=== PATIENT | female | born 1975 | race American Indian/Alaskan Native ===

== ENCOUNTER 2021-01-07 02:17 | Emergency (ER) | payer SELFPAY ==
[2021-01-07 04:20] LABS: Basophils % (Auto) 0.5 % (0.0-1.8); Eosinophils # (Auto) 0.7 K/mm3 (0.0-0.4); Eosinophils % (Auto) 13.5 % (0.0-4.3); Hematocrit 23.3 % (30.3-42.9); Lymphocytes # (Auto) 1.2 K/mm3 (1.2-5.4); Lymphocytes % (Auto) 22.9 % (13.4-35.0); Mean Corpuscular HGB Conc 30 % (30-34); Monocytes # (Auto) 0.5 K/mm3 (0.0-0.8); Monocytes % (Auto) 9.7 % (0.0-7.3); Platelet Count 324 K/mm3 (140-440); Red Blood Count 3.95 M/mm3 (3.65-5.03)
[2021-01-07 04:21] LABS: Mean Corpuscular Volume 59 fl (79-97); Red Cell Distribution Width 21.4 % (13.2-15.2)
--- NOTE | 2021-01-09 12:36 | Emergency Department Report ---
ED Psych HPI - General Chief Complaint: Vaginal Bleeding Stated Complaint: POSS PARASITES ON SKIN Time Seen by Provider: 01/09/21 12:26 Source: patient, EMS Mode of arrival: Ambulatory - History of Present Illness Initial Comments: 1220 Discussed case with Charge Nurse Safia. Pt allegedly in waiting room for 58 hours. She has not asked for help during that time. A staff member told Safia she had seen pt there the entire time. Pt told me she got here at 0230 on the 6th and she has been here (as she does the math) 37 hours. She states I put it in my calendar. Pt states she is here for 1. hemorating (vaginal bleeding). She states I had my ovaries removed, I don't have periods); states she has had vaginal bleeding x 3 days 2. I have parasites or insects crawling on my skin. 3. I had some kind of........................ she could not finish sentence denied hearing voices Denies MH history Home meds none NKDA PSH- ovaries removed PMH anemia Homeless NOK dad mother not in [place]- she would not tell me her name She told me to call [phone] and I can leave a message and theyy will get message to her "real support" I called number and its a full voice mailbox Pt states her real support is Vinnie Chisholm. This is not the name on the voice mail box that I called. Pt states she has not eaten or drank "since I got to this place" I've been waiting on my labs Pt is 45 yo but is acting much younger than stated age denies SI/HI Pos thought blocking/ appears to be having auditory hallucinations (but denies) Given prolonged stay in waiting room labs reordered. The pt never once asked why were getting it again. Although prior in the interview she acknowledged it was drawn. RN is going to call Social Service; Psych eval placed Treatments Prior to Arrival: none - Related Data Allergies Allergy/AdvReac Type Severity Reaction Status Date / Time No Known Allergies Allergy Unverified 01/07/21 03:15 ED Review of Systems ROS: Stated complaint: POSS PARASITES ON SKIN Other details as noted in HPI Comment: All other systems reviewed and negative ED Past Medical Hx - Past Medical History Previous Medical History?: Yes Additional medical history: anemia - Surgical History Past Surgical History?: Yes Additional Surgical History: hysterectomy, oophorectomy - Family History Family history: other (dad ; mother not in [place]) - Social History Substance Use Type: None ED Physical Exam - General Limitations: No Limitations General appearance: alert - Head Head exam: Present: normocephalic - Eye Eye exam: Present: normal appearance - ENT ENT exam: Present: mucous membranes moist - Neck Neck exam: Present: normal inspection - Respiratory Respiratory exam: Present: normal lung sounds bilaterally. Absent: respiratory distress - Cardiovascular Cardiovascular Exam: Present: regular rate, normal rhythm. Absent: systolic murmur, diastolic murmur, rubs, gallop - GI/Abdominal GI/Abdominal exam: Present: soft, normal bowel sounds - Extremities Exam Extremities exam: Present: normal inspection - Back Exam Back exam: Present: normal inspection - Neurological Exam Neurological exam: Present: alert, oriented X3 - Psychiatric Psychiatric exam: Present: other (thought blocking; illogical; paranoid behavior ). Absent: normal affect, normal mood, depressed, agitated, anxious, flat affect, manic, homicidal ideation, suicidal ideation - Skin Skin exam: Present: warm, dry, intact, normal color, other (no insects /parasites). Absent: rash ED Course Vital Signs 01/07/21 01/07/21 01/09/21 03:08 08:34 12:40 Temperature 98.7 F 98.5 F 98.7 F Pulse Rate 86 83 95 H Respiratory 16 16 18 Rate Blood Pressure 135/75 Blood Pressure 128/74 121/54 [Right] O2 Sat by Pulse 100 98 97 Oximetry - Reevaluation(s) Reevaluation #1: 01/09/21 found in waiting room by staff - see notes Reevaluation #2: 01/09/21 13:04 labs/CM and social service pending Reevaluation #3: 01/09/21 15:04 psych and social work still pending pt medically cleared to [facility] ED Medical Decision Making - Lab Data Result diagrams: 01/09/21 12:38 01/09/21 12:38 - Medical Decision Making Lab Results 01/07/21 01/07/21 01/07/21 Range/Units 03:35 03:35 03:35 WBC 5.3 (4.5-11.0) K/mm3 RBC 3.95 (3.65-5.03) M/mm3 Hgb 7.0 L (10.1-14.3) gm/dl Hct 23.3 L (30.3-42.9) % MCV 59 L (79-97) fl MCH 18 L (28-32) pg MCHC 30 (30-34) % RDW 21.4 H (13.2-15.2) % Plt Count 324 (140-440) K/mm3 Lymph % (Auto) 22.9 (13.4-35.0) % [place] % (Auto) 9.7 H (0.0-7.3) % Eos % (Auto) 13.5 H (0.0-4.3) % Baso % (Auto) 0.5 (0.0-1.8) % Lymph # (Auto) 1.2 (1.2-5.4) K/mm3 [place] # (Auto) 0.5 (0.0-0.8) K/mm3 Eos # (Auto) 0.7 H (0.0-0.4) K/mm3 Baso # (Auto) 0.0 (0.0-0.1) K/mm3 Seg Neutrophils % 53.4 (40.0-70.0) % Seg Neutrophils # 2.8 (1.8-7.7) K/mm3 Sodium (137-145) mmol/L Potassium (3.6-5.0) mmol/L Chloride (98-107) mmol/L Carbon Dioxide (22-30) mmol/L Anion Gap mmol/L BUN (7-17) mg/dL Creatinine (0.6-1.2) mg/dL Estimated GFR ml/min BUN/Creatinine Ratio % Glucose (65-100) mg/dL Calcium (8.4-10.2) mg/dL Total Bilirubin (0.1-1.2) mg/dL AST (5-40) units/L ALT (7-56) units/L Alkaline Phosphatase (35-129) units/L Total Protein (6.3-8.2) g/dL Albumin (3.9-5) g/dL Albumin/Globulin Ratio % TSH (0.270-4.200) mlU/mL HCG, Qual Negative (Negative) HCG, Quant < 2 (0-4) mIU/mL Salicylates (2.8-20.0) mg/dL Acetaminophen (10.0-30.0) ug/mL Plasma/Serum Alcohol (0-0.07) % Blood Type 01/07/21 01/09/21 01/09/21 Range/Units 03:35 12:38 12:38 WBC (4.5-11.0) K/mm3 RBC (3.65-5.03) M/mm3 Hgb (10.1-14.3) gm/dl Hct (30.3-42.9) % MCV (79-97) fl MCH (28-32) pg MCHC (30-34) % RDW (13.2-15.2) % Plt Count (140-440) K/mm3 Lymph % (Auto) (13.4-35.0) % [place] % (Auto) (0.0-7.3) % Eos % (Auto) (0.0-4.3) % Baso % (Auto) (0.0-1.8) % Lymph # (Auto) (1.2-5.4) K/mm3 [place] # (Auto) (0.0-0.8) K/mm3 Eos # (Auto) (0.0-0.4) K/mm3 Baso # (Auto) (0.0-0.1) K/mm3 Seg Neutrophils % (40.0-70.0) % Seg Neutrophils # (1.8-7.7) K/mm3 Sodium 138 (137-145) mmol/L Potassium 3.3 L (3.6-5.0) mmol/L Chloride 103.9 (98-107) mmol/L Carbon Dioxide 23 (22-30) mmol/L Anion Gap 14 mmol/L BUN 12 (7-17) mg/dL Creatinine 0.6 (0.6-1.2) mg/dL Estimated GFR > 60 ml/min BUN/Creatinine Ratio 20 % Glucose 107 H (65-100) mg/dL Calcium 8.5 (8.4-10.2) mg/dL Total Bilirubin 0.20 (0.1-1.2) mg/dL AST 18 (5-40) units/L ALT 8 (7-56) units/L Alkaline Phosphatase 71 (35-129) units/L Total Protein 9.0 H (6.3-8.2) g/dL Albumin 3.4 L (3.9-5) g/dL Albumin/Globulin Ratio 0.6 % TSH 1.960 (0.270-4.200) mlU/mL HCG, Qual (Negative) HCG, Quant (0-4) mIU/mL Salicylates (2.8-20.0) mg/dL Acetaminophen (10.0-30.0) ug/mL Plasma/Serum Alcohol (0-0.07) % Blood Type O NEGATIVE 01/09/21 01/09/21 01/09/21 Range/Units 12:38 12:38 12:38 WBC (4.5-11.0) K/mm3 RBC (3.65-5.03) M/mm3 Hgb (10.1-14.3) gm/dl Hct (30.3-42.9) % MCV (79-97) fl MCH (28-32) pg MCHC (30-34) % RDW (13.2-15.2) % Plt Count (140-440) K/mm3 Lymph % (Auto) (13.4-35.0) % [place] % (Auto) (0.0-7.3) % Eos % (Auto) (0.0-4.3) % Baso % (Auto) (0.0-1.8) % Lymph # (Auto) (1.2-5.4) K/mm3 [place] # (Auto) (0.0-0.8) K/mm3 Eos # (Auto) (0.0-0.4) K/mm3 Baso # (Auto) (0.0-0.1) K/mm3 Seg Neutrophils % (40.0-70.0) % Seg Neutrophils # (1.8-7.7) K/mm3 Sodium (137-145) mmol/L Potassium (3.6-5.0) mmol/L Chloride (98-107) mmol/L Carbon Dioxide (22-30) mmol/L Anion Gap mmol/L BUN (7-17) mg/dL Creatinine (0.6-1.2) mg/dL Estimated GFR ml/min BUN/Creatinine Ratio % Glucose (65-100) mg/dL Calcium (8.4-10.2) mg/dL Total Bilirubin (0.1-1.2) mg/dL AST (5-40) units/L ALT (7-56) units/L Alkaline Phosphatase (35-129) units/L Total Protein (6.3-8.2) g/dL Albumin (3.9-5) g/dL Albumin/Globulin Ratio % TSH (0.270-4.200) mlU/mL HCG, Qual (Negative) HCG, Quant (0-4) mIU/mL Salicylates < 0.3 L (2.8-20.0) mg/dL Acetaminophen 5.0 L (10.0-30.0) ug/mL Plasma/Serum Alcohol < 0.01 (0-0.07) % Blood Type Vital Signs 01/07/21 01/07/21 01/09/21 03:08 08:34 12:40 Temperature 98.7 F 98.5 F 98.7 F Pulse Rate 86 83 95 H Respiratory 16 16 18 Rate Blood Pressure 135/75 Blood Pressure 128/74 121/54 [Right] O2 Sat by Pulse 100 98 [address] Palomino a/c anemia no orthostasis labs noted ua noted preg neg medically cleared for psych evaluation. PLAN E SOCIAL SERVICE CONSULT Dispo per E reqs - Differential Diagnosis a/c anemia; ro preg; psychosis Critical care attestation.: If time is entered above; I have spent that time in minutes in the direct care of this critically ill patient, excluding procedure time. ED Disposition Clinical Impression: Psychosis Disposition: DC/TX-65 PSY HOSP/PSY UNIT Is pt being admited?: No Does the pt Need Aspirin: No Condition: Undetermined Referrals: PRIMARY CARE, [Primary Care Provider] - 3-5 Days
[2021-01-09] MEDS ORDERED: SODIUM CHLORIDE 0.9% 1000 ML 1,000 ML IV ONE (12:54)
[2021-01-09 13:32] LABS: Alanine Aminotransferase 8 units/L (7-56); Albumin 3.4 g/dL (3.9-5); Blood Urea Nitrogen 12 mg/dL (7-17); Calcium 8.5 mg/dL (8.4-10.2); Hemolysis Index 0
[2021-01-09 14:11] LABS: BUN/Creatinine Ratio 20
[2021-01-09] MEDS ORDERED: POTASSIUM CHLORIDE ER 20 MEQ TAB PO ONE (14:37)
[2021-01-09 15:11] LABS: Mean Corpuscular HGB Conc 30 % (30-34); Platelet Count 318 K/mm3 (140-440); Red Blood Count 3.95 M/mm3 (3.65-5.03)
[2021-01-09 15:25] LABS: Mean Corpuscular Volume 58 fl (79-97); Red Cell Distribution Width 21.3 % (13.2-15.2)
[2021-01-09] MEDS ORDERED: ZIPRASIDONE MESYLATE 20 MG VIAL IM ONE (15:25)
--- NOTE | 2021-01-09 15:29 | Emergency Department Report ---
ED Psych HPI - General Chief Complaint: Vaginal Bleeding Stated Complaint: POSS PARASITES ON SKIN Time Seen by Provider: 01/09/21 12:26 Source: patient, EMS Mode of arrival: Ambulatory - History of Present Illness Initial Comments: Patient is 45 years old female with unknown past medical history. Patient presented to the ER initially complaining of vaginal bleeding for a long period of time. Patient stated that she had history of anemia. Upon evaluation patient is very aggressive and very loud with pressured speech and flight of ideas. Patient stating that she see insects and worms coming out of her skin. When asked if she has any history of psychiatric problem before she said that she used to have schizophrenia and bipolar but her debt counselor prove that she does not have it anymore. Patient became very agitated and loud, patient is in acute psychosis and patient have to be restrained with Geodon. Complaint: altered mental status -: unknown Associated Psychiatric Symptoms: delusions Treatments Prior to Arrival: none - Related Data Allergies Allergy/AdvReac Type Severity Reaction Status Date / Time No Known Allergies Allergy Unverified 01/07/21 03:15 ED Review of Systems ROS: Stated complaint: POSS PARASITES ON SKIN Other details as noted in HPI Comment: Unobtainable due to pts medical conditions ED Past Medical Hx - Past Medical History Previous Medical History?: Yes Additional medical history: anemia - Surgical History Past Surgical History?: Yes Additional Surgical History: hysterectomy, oophorectomy - Social History Substance Use Type: None ED Physical Exam - General Limitations: No Limitations General appearance: alert, anxious, other (agitated) - Head Head exam: Present: atraumatic, normocephalic, normal inspection - Eye Eye exam: Present: normal appearance - ENT ENT exam: Present: normal exam, normal orophraynx, mucous membranes moist - Neck Neck exam: Present: normal inspection, full ROM. Absent: tenderness, meningismus - Respiratory Respiratory exam: Present: normal lung sounds bilaterally - Cardiovascular Cardiovascular Exam: Present: regular rate, normal rhythm, normal heart sounds - GI/Abdominal GI/Abdominal exam: Present: soft, normal bowel sounds. Absent: distended, tenderness, guarding, rebound, rigid, organomegaly, mass, bruit, pulsatile mass, hernia - Extremities Exam Extremities exam: Present: normal inspection, full ROM, normal capillary refill. Absent: tenderness - Back Exam Back exam: Present: normal inspection, full ROM. Absent: tenderness, CVA tenderness (L) - Neurological Exam Neurological exam: Present: alert, oriented X3 - Psychiatric Psychiatric exam: Present: agitated, manic - Skin Skin exam: Present: warm, intact, normal color ED Course Vital Signs 01/07/21 01/07/21 01/09/21 03:08 08:34 12:40 Temperature 98.7 F 98.5 F 98.7 F Pulse Rate 86 83 95 H Respiratory 16 16 18 Rate Blood Pressure 135/75 Blood Pressure 128/74 121/54 [Right] O2 Sat by Pulse 100 98 97 Oximetry 01/09/21 01/10/21 01/10/21 19:53 04:15 08:00 Temperature 97.6 F 97.1 F L 98.0 F Pulse Rate 92 H 90 89 Respiratory 18 18 18 Rate Blood Pressure Blood Pressure 127/75 122/76 108/72 [Right] O2 Sat by Pulse 100 100 100 Oximetry 01/10/21 01/10/21 01/10/21 09:17 20:00 21:14 Temperature 98.8 F Pulse Rate 89 Respiratory 18 Rate Blood Pressure Blood Pressure 143/84 [Right] O2 Sat by Pulse 100 96 96 Oximetry 01/11/21 01/11/21 10:00 14:36 Temperature 98.5 F Pulse Rate 94 H Respiratory 20 Rate Blood Pressure Blood Pressure 121/71 [Right] O2 Sat by Pulse 100 100 Oximetry ED Medical Decision Making - Lab Data Result diagrams: 01/09/21 12:38 01/09/21 12:38 Critical care attestation.: If time is entered above; I have spent that time in minutes in the direct care of this critically ill patient, excluding procedure time. ED Disposition Clinical Impression: Psychosis Disposition: DC/TX-65 PSY HOSP/PSY UNIT Is pt being admited?: No Condition: Undetermined Additional Instructions: HOMELESS RESOURCES: [facility] NEED HELP? If you are in need of help or know someone who does, please contact us at [email or web address] , or come to our offices at [address] [place] [address], Wednesday-Wednesday beginning at 8AM. [place] Refuge: [facility], [facility] Address: [facility] [address] [place] [id number] How do I join the [facility] housing program? Our housing programs are offered based on availability. If you are looking to participate in our housing program, simply call [phone] to find out if we have available space. Since we do receive many calls, please allow up to 48 hours for one of our housing specialists to return your call. If we do not have vacancies, we suggest callingthe [facility] hotline at [facility] for additional omar sing options. [facility] Admission from 8am to 10am Daily No intake until 06/03/20 Address: [address] [place] [id number] [facility] Ad[facility] Address: [address], [place] [id number] Professional and Agency Contacts To help Resolve Crises (28/12) [place] Crisis Line: Suicide Prevention Line: Crisis Text Line: Text START to 732049 Emergency: 911 Outpatient COMMUNITY Behavioral Health Resources: DUANE: [facility] [address], [place] [address] [facility] [address] [place] [address] Wednesday thru Wednesday - 8am - 5pm Call to schedule an assessment for mental health and substance abuse pr [email or web address] [facility] Address: [address] [place] [address] Wednesday thru Wednesday- 7am-2pm [facility] Address: [address] [place] [address] Wednesday thru Wednesday: 8:30AM-5PM Referrals: PRIMARY CAREMD [Primary Care Provider] - 3-5 Days
[2021-01-09 16:57] LABS: Anisocytosis 1+; Hypochromasia 2+; Total Cells Counted 100
[2021-01-10] MEDS ORDERED: ZIPRASIDONE MESYLATE 20 MG VIAL IM ONE (09:08)
--- NOTE | 2021-01-10 11:27 | Consultation ---
History of Present Illness - Reason for Consult Consult date: 01/10/21 Reason for consult: mental health evaluation - History of Present Psychiatric Illness ED Note: Patient is 45 years old female with unknown past medical history. Patient presented to the ER initially complaining of vaginal bleeding for a long period of time. Patient stated that she had history of anemia. Upon evaluation patient is very aggressive and very loud with pressured speech and flight of ideas. Patient stating that she see insects and worms coming out of her skin. When asked if she has any history of psychiatric problem before she said that s he used to have schizophrenia and bipolar but her contracts representative prove that she does not have it anymore. Patient became very agitated and loud, patient is in acute psychosis and patient have to be restrained with Geodon. The patient Jo Miller is a 45 year old female with unknown psychiatric diagnosis. The patient was seen this morning disorganized, being loud and confrontational. The patient was restrained with Geodon. Unable to assess at this time. PAST PSYCHIATRIC HISTORY: Unable to assess PAST MEDICAL HISTORY:unknown Family Psychiatric History: None reported or documented SOCIAL HISTORY: Unable to assess REVIEW OF SYSTEMS: Unable to assess MENTAL STATUS EXAMINATION: Unable to assess Diagnoses: Psychosis, unspecified- F29 Current Visit: Yes Status: Acute RECOMMENDATIONS Continue 1013 Risks, benefits and alternatives of medications discussed with the patient, questions answered and consent obtained from patient. PSYCHOTHERAPY: Supportive psychotherapy provided MEDICAL: Per primary team DELIRIUM PRECAUTIONS: Please re-orient patient frequently, keep lights on during the day, and minimize benzodiazepines and opiates as these medications could worsen patient's confusion. SPACE BUYER: Per medical team DISPOSITION: Recommend acute inpatient psychiatric hospitalization at this time FOLLOW-UP: Will follow. Thank you for the consult. Please contact with any questions and/or concerns. Medications and Allergies Medications and Allergies Allergies Allergy/AdvReac Type Severity Reaction Status Date / Time No Known Allergies Allergy Unverified 01/07/21 03:15 Mental Status Exam - Vital signs Last Vital Signs Temp 98.0 F 01/10/21 08:00 Pulse 89 01/10/21 08:00 Resp 18 01/10/21 08:00 BP 108/72 01/10/21 08:00 Pulse Ox 100 01/10/21 09:17 Results Result Diagrams: 01/09/21 12:38 01/09/21 12:38 Abnormal lab results 01/09/21 01/09/2101/09/21 Range/Units 12:38 12:38 12:38 WBC 4.2 L (4.5-11.0) K/mm3 Hgb 7.0 L (10.1-14.3) gm/dl Hct 23.0 L (30.3-42.9) % MCV 58 L (79-97) fl MCH 18 L (28-32) pg RDW 21.3 H (13.2-15.2) % Monocytes % (Manual) 10.0 H (0.0-7.3) % Eosinophils % (Manual) 18.0 H (0.0-4.3) % Basophils % (Manual) 2.0 H (0.0-1.8) % Lymphocytes # (Manual) 0.9 L (1.2-5.4) K/mm3 Eosinophils # (Manual) 0.8 H (0.0-0.4) K/mm3 Potassium 3.3 L (3.6-5.0) mmol/L Glucose 107 H (65-100) mg/dL Total Protein 9.0 H (6.3-8.2) g/dL Albumin 3.4 L (3.9-5) g/dL Salicylates < 0.3 L (2.8-20.0) mg/dL Acetaminophen (10.0-30.0) ug/mL 01/09/21 Range/Units 12:38 WBC (4.5-11.0) K/mm3 Hgb (10.1-14.3) gm/dl Hct (30.3-42.9) % MCV (79-97) fl MCH (28-32) pg RDW (13.2-15.2) % Monocytes % (Manual) (0.0-7.3) % Eosinophils % (Manual) (0.0-4.3) % Basophils % (Manual) (0.0-1.8) % Lymphocytes # (Manual) (1.2-5.4) K/mm3 Eosinophils # (Manual) (0.0-0.4) K/mm3 Potassium (3.6-5.0) mmol/L Glucose (65-100) mg/dL Total Protein (6.3-8.2) g/dL Albumin (3.9-5) g/dL Salicylates (2.8-20.0) mg/dL Acetaminophen 5.0 L (10.0-30.0) ug/mL All other labs normal.
--- NOTE | 2021-01-10 11:41 | Emergency Department Report ---
Blank Doc - Documentation Documentation: The patient presents to the emergency department for psychosis Patient is awaiting 1013 application of [facility] Patient has been evaluated by mental health Patient is awaiting placement Patient received Geodon for psychosis and agitation with good results
[2021-01-10] MEDS ORDERED: ZIPRASIDONE MESYLATE 20 MG VIAL IM PRN (12:00)
[2021-01-11 09:28] LABS: Amphetamine Screen,Urine Negative; Benzodiazepines Screen,Urine Negative; Cocaine Screen,Urine Negative; Methadone Screen,Urine Negative; Opiate Screen,Urine Negative
[2021-01-11 09:51] LABS: Bacteria,Urine 4+ /HPF (Negative); Bilirubin,Urine NEG (Negative); Blood,Urine MOD (Negative); Color,Urine Amber (Yellow); Mucus,Urine 3+ /HPF; Trichomonas,Urine FEW /HPF
[2021-01-11 09:52] LABS: Cannabinoid Screen,Urine PRESUMPTIVE POSITIVE
[2021-01-11 09:56] LABS: WBC,Urine > 182.0 /HPF (0.0-6.0)
--- NOTE | 2021-01-11 11:18 | Event Note ---
Date: 01/11/21 S: Patient refusing medications and vital signs. Otherwise no other events were reported overnight O: Vital Signs - 24 hr 01/10/21 01/10/21 01/11/21 20:00 21:14 10:00 Temperature 98.8 F Pulse Rate 89 Respiratory 18 Rate Blood Pressure 143/84 [Right] O2 Sat by Pulse 96 96 100 Oximetry A: Psychosis P: Awaiting psychiatric placement
--- NOTE | 2021-01-11 12:10 | Progress Note ---
Subjective - Reason for Consult Consult date: 01/11/21 Reason for consult: mental health evaluation - Chief Complaint Chief complaint: The patient was seen in the room, she reports doing well. She denies any current suicidal/homicidal ideation and denies hallucinations. The patient states she has been homeless for the past 7 months. REVIEW OF SYSTEMS Constitutional: Negative for weight loss ENT: Negative for stridor Respiratory: Negative for cough or hemoptysis All other systems reviewed and are negative MENTAL STATUS EXAMINATION General Appearance and Behavior: Age appropriate, good hygiene, wearing appropriate clothes, cooperative, cooperative Cooperation: Participating/engaged Psychomotor Behavior: normal Mood: angry Affect and affective range: congruent with stated mood Thought Process: not SI Thought Content: obsession Speech: Normal volume, Regular rate and rhythm Suicidal Ideation: denies Homicidal Ideation: Denies Hallucinations: Denies Delusions: None elicited Impulse Control: impaired Insight and Judgment: limited insight and judgment, Memory: normal Attention: Normal Orientation: Alert, oriented Assessment and Plan (1) schizophrenia (2) Current Visit: Yes Status: Acute Treatment Plan DC 1013 Sitter: Per primary Medical: Per primary Disposition: Do not recommend acute psychiatric inpatient treatment Will follow. Thanks Case staffed with Dr. Calixto Mental Status Exam - Vital signs Last Vital Signs Temp 98.8 F 01/10/21 21:14 Pulse 89 01/10/21 21:14 Resp 18 01/10/21 21:14 BP 143/84 01/10/21 21:14 Pulse Ox 100 01/11/21 10:00
[2021-01-11] MEDS ORDERED: WATER FOR INJ Sterile (PF) 10 ML ONE (12:38)
[2021-01-11 14:36] VITALS: BP 121/71
== END 2021-01-11 16:44 ==
LOC: ED 02:17
DX: F23 Brief psychotic disorder (principal); N93.9 Abnormal uterine and vaginal bleeding, unspecified; Z03.818 Encounter for observation for suspected exposure to other biological agents ruled out
CPT/HCPCS: 36415; 80053; 80307; 81001; 84443; 84702; 84703; 85007; 85025; 86850; 86900; 86901; 96360; 96361; 96372; 99284; J3486; J7030; U0003; 80320; G0480

== ENCOUNTER 2021-01-11 18:53 | Emergency (ER) | payer SELFPAY ==
--- NOTE | 2021-01-11 23:50 | Emergency Department Report ---
ED General Adult HPI - General Chief complaint: Medical Clearance Stated complaint: PARASITES Source: patient Mode of arrival: Ambulatory Limitations: No Limitations - History of Present Illness Initial comments: Patient is a 45-year-old -[place] female with a history of chronic paranoid schizophrenia who presents to the ED with complaint of persistent low blood pressure for the last 12 hours and also states "parasites are emerging from my skin every day and I want sodium chloride to treat them with." Patient states that she did not check her blood pressure but felt that her blood pressure was low because of "parasites in my skin". Patient denies visual or auditory hallucinations, suicidal or homicidal ideations, chest pain, shortness of breath, fever, chills, headache, dizziness, syncope, loss of consciousness, cough, dysuria, urinary frequency and urgency. MD Complaint: Low blood pressure; parasite emerging from skin -: Gradual, month(s) (3) Radiation: non-radiation Severity scale (0 -10): 0 Consistency: intermittent Improves with: none Worsens with: none Associated Symptoms: denies other symptoms. denies: confusion, chest pain, cough, diaphoresis, fever/chills, headaches, nausea/vomiting, rash, seizure, shortness of breath, syncope, weakness Treatments Prior to Arrival: none - Related Data Allergies Allergy/AdvReac Type Severity Reaction Status Date / Time No Known Allergies Allergy Unverified 01/07/21 03:15 ED Review of Systems ROS: Stated complaint: PARASITES Other details as noted in HPI Constitutional: other (States that has low blood pressure). denies: chills, fever Eyes: denies: eye pain, eye discharge, vision change ENT: denies: ear pain, throat pain Respiratory: denies: cough, shortness of breath, wheezing Cardiovascular: denies: chest pain, palpitations Endocrine: no symptoms reported Gastrointestinal: denies: abdominal pain, nausea, diarrhea Genitourinary: denies: urgency, dysuria, discharge Musculoskeletal: denies: back pain, joint swelling, arthralgia Skin: denies: rash, lesions Neurological: denies: headache, weakness, paresthesias Psychiatric: anxiety, other (States that parasites emerging from her skin). denies: depression, auditory hallucinations, homicidal thoughts, suicidal thoughts Hematological/Lymphatic: denies: easy bleeding, easy bruising ED Past Medical Hx - Past Medical History Previous Medical History?: Yes Hx Psychiatric Treatment: Yes (Paranoid schizophrenia) Additional medical history: anemia - Surgical History Past Surgical History?: Yes Additional Surgical History: hysterectomy, oophorectomy - Social History Smoking Status: Never Smoker Substance Use Type: None ED Physical Exam - General Limitations: No Limitations General appearance: alert, in no apparent distress - Head Head exam: Present: atraumatic, normocephalic, normal inspection - Eye Eye exam: Present: normal appearance, PERRL, EOMI Pupils: Present: normal accommodation - ENT ENT exam: Present: normal exam, normal orophraynx, mucous membranes moist, TM's normal bilaterally, normal external ear exam - Neck Neck exam: Present: normal inspection, full ROM - Respiratory Respiratory exam: Present: normal lung sounds bilaterally. Absent: respiratory distress, wheezes, rales, rhonchi, stridor, chest wall tenderness, accessory muscle use, decreased breath sounds, prolonged expiratory - Cardiovascular Cardiovascular Exam: Present: regular rate, normal rhythm, normal heart sounds. Absent: systolic murmur, diastolic murmur, rubs, gallop - GI/Abdominal GI/Abdominal exam: Present: soft, normal bowel sounds. Absent: tenderness, guarding, rebound, hyperactive bowel sounds, hypoactive bowel sounds, organomegaly - Extremities Exam Extremities exam: Present: normal inspection, full ROM, normal capillary refill - Back Exam Back exam: Present: normal inspection, full ROM. Absent: tenderness, CVA tenderness (R), CVA tenderness (L), muscle spasm, paraspinal tenderness, vertebral tenderness - Neurological Exam Neurological exam: Present: alert, oriented X3, CN II-XII intact, normal gait, reflexes normal - Psychiatric Psychiatric exam: Present: normal mood, anxious, flat affect. Absent: homicidal ideation, suicidal ideation - Skin Skin exam: Present: warm, dry, intact, normal color. Absent: rash ED Course Vital Signs 01/11/21 20:37 Temperature 99.0 F Pulse Rate 89 Respiratory 18 Rate Blood Pressure 142/88 O2 Sat by Pulse 100 Oximetry ED Medical Decision Making - Medical Decision Making This is a 45-year-old -[place] female with a history of chronic paranoid schizophrenia who presents to the ED with complaint of persistent low blood pressure for the last 12 hours and also states "parasites are emerging from my skin every day and I want sodium chloride to treat them with." Patient states that she did not check her blood pressure but felt that her blood pressure was low because of "parasites in my skin". In the ED, patient is alert and oriented x3 and is not in any distress with normal vital signs. Patient insisted on being treated in the ED with IV normal saline to treat her perceived "parasites from her skin" but physical exam is unremarkable with no obvious parasitic infestations on her skin. Patient is not homicidal or suicidal at this time, and is hemodynamically stable, answering questions appropriately. Patient was advised to take her regular mental health medications and was therefore discharged from the ED and advised to follow-up with her psychiatrist or mental health counselor in 2 to 3 days for reevaluation. - Differential Diagnosis Paranoid schizophrenia; anxiety; depression; bipolar Critical care attestation.: If time is entered above; I have spent that time in minutes in the direct care of this critically ill patient, excluding procedure time. ED Disposition Clinical Impression: Paranoid schizophrenia, chronic condition Disposition: DC-01 TO HOME OR SELFCARE Is pt being admited?: No Does the pt Need Aspirin: No Condition: Stable Additional Instructions: Take your regular medications and follow-up with your mental health specialist or psychiatrist in 2 to 3 days for reevaluation. Referrals: [facility] [Outside] - 3-5 Days Time of Disposition: 23:49 Print Language: LAO
[2021-01-12 02:43] VITALS: BP 130/78
== END 2021-01-12 02:40 | disposition home or self-care (01) ==
LOC: ED 18:53
DX: F20.0 Paranoid schizophrenia (principal); G89.29 Other chronic pain; Z90.710 Acquired absence of both cervix and uterus
CPT/HCPCS: 99282

== ENCOUNTER 2021-01-13 02:10 | Emergency (ER) | payer SELFPAY ==
[2021-01-13 02:41] VITALS: BP 136/81
== END 2021-01-13 15:30 | disposition left against medical advice (07) ==
LOC: ED 02:10
DX: R53.1 Weakness (principal); Z53.21 Procedure and treatment not carried out due to patient leaving prior to being seen by health care provider